=== PATIENT | male | born 2000 | race Caucasian/White ===

== ENCOUNTER 2019-03-24 06:33 | Day surgery (SDC) | payer OTHER, SELFPAY ==
[2019-03-18 08:40] VITALS: BMI 25.4
[2019-03-24] VITALS (8 sets, daily range): BP systolic 102–128; BP diastolic 57–76; PULSE 56–75; RESP 13–17; TEMP 36.1–36.3; O2SAT 97–99; BMI 24.9
--- NOTE | 2019-03-24 | PATH_ITS ---
[facility] Accession Number: [id number] . 01 Material submitted: . body - PILONIDAL CYST . 01 Clinical history: . EXCISION OF PILONIDAL CYST . 01 Diagnosis: Pilonidal cyst, Excision: Histologic features consistent with pilonidal cyst, see microscopic description. [facility] 03/25/2019 1836 Local . 01 Electronically signed: . Yandy Rodrigez MD, Pathologist NPI- [id number] . 01 Gross description: . PILONIDAL CYST: Received in formalin is 1 fragment of chau soft tissue measuring 1.5 x 1.0 x 1.0 cm. Tissue is inked blue. Specimen is sectioned and submitted in its entirety in 2 cassettes. /[facility] [place] 03/26/2019 1507 Local . 01 Microscopic: . Microscopic examination reveals skin and subcutaneous tissue with focal chronic active inflammation, scattered hair shafts and associated foreign body giant cell reaction. Negative for malignancy. . 01 Pathologist provided ICD-10: L05.91 . 01 CPT . 262716 Performed at: [address] [facility] [address], [place], [place] [id number] MD Rakesh Berry MD Phone: [phone]
--- NOTE | 2019-03-24 06:50 | PM.PREOP ---
Pre-operative Note Interval Note History & Physical reviewed/Exam performed by Physician: Yes Changes to H&P: No
--- NOTE | 2019-03-24 06:51 | PM.HP.1 ---
History of Present Illness History of Present Illness Date Patient Seen: 03/24/19 Time Patient Seen: 06:51 Chief complaint: [id number] EXCISION OF PILONIDAL CYST Narrative: No interval change in health since last H&P 02/12/19. Pilonidal cyst plan for simple excision. Patient History Medical History Headache, migraine (Acute) Surgical History History of tonsillectomy and adenoidectomy (Resolved ~2003) Family & Social History Family History Grandfather Heart disease Grandmother Cancer Tobacco & Substance use: Tobacco type smokeless tobacco Smoking Status Never smoker alcohol intake never Substance Use Type does not use Meds Home Medications and Allergies Home Medications Medication Instructions Recorded Confirmed Type No Known Home Medications 11/27/18 03/18/19 History Allergies Allergy/AdvReac Type Severity Reaction Status Date / Time No Known Drug Allergies Allergy Unverified 02/12/19 10:06 Review of Systems Review of Systems ROS Unobtainable: All systems reviewed & are unremarkable except as noted in HPI and below Exam Narrative Exam Narrative: Gen-Alert oriented Chest-non labored resp Abd-Soft non tender Extm Warm well perfused. Assessment & Plan Assessment & Plan narrative: 18M pilonidal cyst here for simple excision. See H &P 02/12/19 for further detail -Ancef -Prone
[2019-03-24] MEDS: LACTATED RINGERS 1,000 ML 100 ML IV (07:22)
[2019-03-24] MEDS: CEFAZOLIN 2 GM/100 ML FROZ.PIGGY IV (08:00)
--- NOTE | 2019-03-24 08:22 | SUR.OPER ---
Prone on padded OR bed, head in foam head support, gel chest rolls, gel pad under knees, pillow under lower legs, toes free of pressure, arms secured on padded arm boards at <90 degrees abduction. Rolled towels to axilla bilaterally. Safety belt at thigh.
--- NOTE | 2019-03-24 08:30 | SUR.OPER ---
Dressing to pilonidal cyst Surgical site gluteal fold
[2019-03-24] MEDS: BUPIVACAINE 0.25% (PF) VIAL 30 ML INJ (08:35)
--- NOTE | 2019-03-24 08:40 | PM.OP.1 ---
Operative Date/Time/Diagnoses Date of procedure: 03/24/19 Time of procedure: 08:40 Pre-op diagnosis: Pilonidal cyst Post-op diagnosis: same Procedure & Clinicians Procedure: Excision of pilonidal cyst Same procedure as scheduled: Yes Indications: This is a 18-year-old male with a symptomatic pilonidal cyst who presents for simple excision. Surgeon: Vu Alanis Anesthesia Type: General Operative Notes Findings: Pilonidal cyst with hair within the base of the the cyst Specimen(s): other (Pilonidal cyst) Estimated Blood Loss (mL): 10 Procedure in detail: Patient was right to the operating room and bilateral lower extremity compression devices were applied. General anesthesia was induced and he was intubated with a endotracheal tube. He was then placed into the prone position. 2 g of Ancef were given prior to skin incision. He was then prepped and draped in the usual sterile fashion. A time-out was performed ensure the correct patient procedure necessary equipment within the operating room. Elliptical incision was made around the pits of the pilonidal cyst. Pilonidal cyst did not appear to be actively infective and it was excised in its entirety off of the sacral fascia. There was hair within the base of the cyst which was removed with the specimen. Wound was hemostatic was irrigated. The wound was then packed with iodoform gauze dressing were and sterile gauze overlay neck. Patient tolerated procedure well was returned to supine position extubated and transferred to the postoperative care unit in stable condition. Complications: none Post-operative Condition: stable Disposition: same day surgery
[2019-03-24] MEDS: fentaNYL 100 MCG/2 ML INJ 50 MCG IV ×2 (09:02→09:07)
[2019-03-24] MEDS: MEPERIDINE 50 MG/ML INJ 25 MG IV (09:13)
[2019-03-24] MEDS: OXYCODONE/ACETAMINOPHEN 5/325 TABLET 1 TAB PO (09:27)
== END 2019-03-24 09:58 | disposition home or self-care (01) ==
PROVIDERS: PCP Preventive Medicine Public Health & General Preventive Medicine; Visit Provider Surgery
PROC: (CPT 11770; principal; 2019-03-24 07:45)
DX: L05.91 Pilonidal cyst without abscess (principal)
CPT/HCPCS: 11770; J0330; J0690; J1100; J2175; J2250; J2405; J2704; J3010